=== PATIENT | female | born 1970 | race African-American/Black ===

== ENCOUNTER 2017-12-30 08:29 | Emergency (ER) | payer MEDICAID ==
[~2017-12-30] VITALS: Ht 162.6 cm; Wt 83.9 kg
[2017-12-30 08:30] VITALS: BP_SYST 151
[2017-12-30] MEDS ORDERED: IPRATROPIUM/ALBUTEROL SULFATE 3 ML AMPUL.NEB INH ONE ×2 (09:00→10:15)
[2017-12-30] MEDS ORDERED: methylPREDNISolone SOD SUCC/PF 62.5 MG/ML VIAL IM ONE (09:00)
[2017-12-30] MEDS ORDERED: IPRATROPIUM/ALBUTEROL SULFATE 3 ML AMPUL.NEB ONE (09:01)
[2017-12-30] MEDS ORDERED: methylPREDNISolone SOD SUCC/PF 62.5 MG/ML VIAL ONE (09:11)
[2017-12-30] MEDS ORDERED: ACETAMINOPHEN 500 MG TABLET PO ONE (09:45)
[2017-12-30] MEDS ORDERED: ACETAMINOPHEN 500 MG TABLET ONE (09:48)
[2017-12-30 10:58] VITALS: BP_SYST 127
== END 2017-12-30 10:58 | disposition home or self-care (01) ==
LOC: SED 08:29
DX: J20.9 Acute bronchitis, unspecified (principal); R03.0 Elevated blood-pressure reading, without diagnosis of hypertension; J45.909 Unspecified asthma, uncomplicated
CPT/HCPCS: 36415; 71045; 86403; 87081; 94640; 96372; 99285; J2930; J7620

== ENCOUNTER 2018-03-08 18:47 | Emergency (ER) | payer MEDICAID ==
[~2018-03-08] VITALS: Ht 162.6 cm; Wt 81.6 kg
[2018-03-08 19:14] VITALS: BP_SYST 144
[2018-03-08] MEDS ORDERED: CYCLOBENZAPRINE HCL 10 MG TABLET (FLEXERIL) PO ONE (20:00)
[2018-03-08] MEDS ORDERED: KETOROLAC TROMETHAMINE 30 MG VIAL IM ONE (20:00)
[2018-03-08] MEDS ORDERED: PREDNISONE 20 MG TABLET PO ONE (21:00)
[2018-03-08 21:15] VITALS: BP_SYST 130
== END 2018-03-08 21:15 | disposition home or self-care (01) ==
LOC: SED 18:47
DX: M77.8 Other enthesopathies, not elsewhere classified (principal); J45.909 Unspecified asthma, uncomplicated
CPT/HCPCS: 96372; 99283; J1885; J7512